=== PATIENT | male | born 2000 | race Caucasian/White ===

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

== ENCOUNTER 2021-01-07 16:55 | Emergency (ER) | payer OTHER, MEDICAID ==
[~2021-01-07] VITALS: Ht 172.7 cm; Wt 54.4 kg
[2021-01-07 17:03] VITALS: BP 112/54
[2021-01-07 17:45] LABS: CALCIUM 9.5 mg/dL (8.5-10.1); CREATININE 0.9 mg/dL (0.6-1.3); POTASSIUM 4.2 mmol/L (3.5-5.1)
[2021-01-07] MEDS ORDERED: ZOFRAN ODT4 MG DISSOLVE (18:06)
== END 2021-01-07 18:19 | disposition home or self-care (01) ==
LOC: M.ERS 16:55
PROVIDERS: Emergency Medicine Emergency Medical Services
DX: R19.7 Diarrhea, unspecified (principal); Z20.822 Contact with and (suspected) exposure to COVID-19; Z98.890 Other specified postprocedural states; Z91.09 Other allergy status, other than to drugs and biological substances